=== PATIENT | female | born 2000 | race Caucasian/White ===

== ENCOUNTER → 2020-06-25 08:06 | Outpatient (BNVA) | payer BC, SELFPAY | PROVIDERS: Family Provider Family Medicine; Visit Provider Obstetrics & Gynecology | DX: Z12.4 Encounter for screening for malignant neoplasm of cervix (principal); Z20.2 Contact with and (suspected) exposure to infections with a predominantly sexual mode of transmission | CPT/HCPCS: 87491; 87591; 87661; 88175 ==

== ENCOUNTER → 2021-02-12 14:05 | Outpatient (BNVA) | payer BC, SELFPAY | PROVIDERS: Family Provider Family Medicine; PCP Internal Medicine; Visit Provider Nurse Practitioner Women's Health | DX: A59.9 Trichomoniasis, unspecified (principal); N90.89 Other specified noninflammatory disorders of vulva and perineum; Z30.9 Encounter for contraceptive management, unspecified; B37.9 Candidiasis, unspecified | CPT/HCPCS: 87491; 87530; 87591; 87661 ==

== ENCOUNTER → 2021-02-25 13:15 | Outpatient (BNVA) | payer BC, SELFPAY | PROVIDERS: Family Provider Family Medicine; PCP Internal Medicine; Visit Provider Nurse Practitioner Women's Health | DX: Z30.014 Encounter for initial prescription of intrauterine contraceptive device (principal) | CPT/HCPCS: 81025 ==

== ENCOUNTER 2022-04-23 08:40 | Outpatient (CLI) | payer BC, SELFPAY | END 2022-04-23 08:41 | disposition home or self-care (01) | PROVIDERS: Family Provider Family Medicine; PCP Internal Medicine; Visit Provider Nurse Practitioner Women's Health | DX: Z32.00 Encounter for pregnancy test, result unknown (principal) | CPT/HCPCS: 84702 ==

== ENCOUNTER → 2022-06-02 12:15 | Outpatient (BNVA) | payer BC, SELFPAY | PROVIDERS: Family Provider Family Medicine; PCP Internal Medicine; Visit Provider Nurse Practitioner Women's Health | DX: Z01.419 Encounter for gynecological examination (general) (routine) without abnormal findings (principal); Z11.3 Encounter for screening for infections with a predominantly sexual mode of transmission | CPT/HCPCS: 86592; 86803; 87340; 87491; 87591; 87661; 87806; 88175 ==

== ENCOUNTER 2022-08-04 03:35 | Emergency (ER) | payer BC, SELFPAY ==
[2022-08-04 04:06] VITALS: BMI 36.9
[2022-08-04 04:08] VITALS: BP 202/109; PULSE 115; RESP 16; TEMP 37.2; O2SAT 98
--- NOTE | 2022-08-04 04:15 | XRR_ITS ---
PROCEDURE INFORMATION: Exam: XR Lumbosacral Spine Exam date and time: 08/04/2022 4:20 AM Age: 22 years old Clinical indication: Patient HX: Sharp low back pain that has been worsening over the last month. TECHNIQUE: Imaging protocol: Radiologic exam of the lumbosacral spine. Views: 2 or 3 views. COMPARISON: No relevant prior studies available. FINDINGS: Bones/joints: Normal. No acute fracture. Normal alignment. Soft tissues: Unremarkable. Organs: IUD projects over the mid pelvis. XR/XR lumbar spine 2-3V* [id number] IMPRESSION: No acute findings.
--- NOTE | 2022-08-04 04:17 | ED_ITS ---
HPI - Back Pain/Injury General: Chief Complaint: Back Pain/Injury Stated Complaint: back pain Time Seen by Provider: 08/04/22 04:12 Source: patient Mode of arrival: ambulatory Limitations: no limitations History of Present Illness: 22-year-old female who states she has had issues with lower back pain over the last month states she been seeing a chiropractor states that yesterday she had to grab and try to open her car door and pulled so felt a very sharp pain in her low back where she has had this chronic pain states pain has been severe today and 9 out of 10 she denies any bowel or bladder incontinence denies any difficulty walking. Denies any fevers. Associated symptoms: Deny abdominal pain, chills, dysuria, fever(s), nausea or vomiting Review of Systems Const: Denies: fever(s) or chills ENMT: Denies: throat pain or dental pain Card: Denies: chest pain Resp: Denies: dyspnea GI: Denies: abdominal pain, nausea, vomiting or diarrhea : Denies: dysuria Musc: Reports: back pain; Denies: neck pain Skin/Breast: Denies: rash Neuro: Denies: headache(s) PFSH ED PFSH: Medical History Anxiety and depression Medical marijuana use No pertinent past medical history negdhx:htn,dm,thyroid,dvt/pe PCP: None Surgical History H/O arthroscopic knee surgery right Family History Grandmother Diabetes Maternal Grandfather Heart disease Maternal Denies family history of Colon cancer Ovarian cancer Clotting disorder Hyperlipidemia Breast cancer Anesthesia complication Bleeding disorder Hypertension Uterine cancer Thyroid condition Stroke Social History Substance/Drug Use: current Substance/Drug use frequency: daily Other substance/drug use details: has a medical card Physical Exam Const: COMMON NORMALS: no acute distress, patient oriented x3 and healthy appearing HENMT: COMMON NORMALS: normocephalic and atraumatic HEAD & SCALP: normocephalic and atraumatic Eye: COMMON NORMALS: conjunctivae normal CONJUNCTIVA: Yes conjunctivae no rmal Neck/C-Spine: COMMON NORMALS: full ROM and supple Chest: COMMONS NORMALS: normal inspection of the chest and normal palpation of entire chest wall Resp: COMMON NORMALS: normal respiratory effort, No retractions, No use of accessory muscles and clear to auscultation bilaterally AUSCULTATION: clear to auscultation bilaterally Cardio: COMMON NORMALS: regular rate, regular rhythm and No murmurs present (Cardio) RATE: regular rate RHYTHM: regular rhythm GI: COMMON NORMALS: Normal to inspection, nondistended, normoactive bowel sounds present, Soft to palpation, non-tender and no masses PALPATION: Yes Soft to palpation Back/Pelvis: OTHER: Right lower lumbar tenderness no midline tenderness no saddle anesthesia Extremity: COMMON NORMALS: normal to inspection and full ROM Neuro: COMMON NORMALS: patient oriented x3, moves all extremities and no focal motor deficits Psych: COMMON NORMALS: mental status grossly normal, Normal thought process present and cooperative THOUGHT PROCESS: Normal thought process present Skin: COMMON NORMALS: no rashes or lesions noted and no wounds GENERAL SKIN EXAM: no rashes or lesions noted Course Vital Signs: Vital signs: Vital Signs Temperature 98.9 F 08/04/22 04:08 Pulse Rate 95 08/04/22 04:49 Respiratory Rate 20 H 08/04/22 04:49 Blood Pressure 126/102 08/04/22 04:49 Pulse Oximetry 97 08/04/22 04:49 Oxygen Delivery Me thod Room Air 08/04/22 04:49 MDM - Back Pain/Injury Medical Decision Making Patient presents for low back pain its been chronic in nature with the acute worsening she has no signs of cord compression she is ambulatory she is pain- free now after pain meds she had no saddle anesthesia. We will place her on pain meds along with steroids and muscle relaxants for home we will get her follow-up with Dr. Gayle she is return if worsening. Medical Records I reviewed the patient's medical records. Labs I reviewed the patient's lab results. 08/04/22 04:45 08/04/22 04:45 Laboratory Results WBC 10.3 10^3/uL (4.0-10.0) H 08/04/22 04:45 RBC 5.07 10^6/uL (4.1-5.3) 08/04/22 04:45 Hgb 13.7 g/dL (11.5-15.3) 08/04/22 04:45 Hct 43.4 % (37.0-47.0) 08/04/22 04:45 MCV 85.6 fl (81-99) 08/04/22 04:45 MCH 27.0 pg (28.0-34.0) L 08/04/22 04:45 MCHC 31.6 g/dL (30.0-36.0) 08/04/22 04:45 RDW 13.8 % (12.1-15.1) 08/04/22 04:45 Plt Count 330 10^3/cmm (130-400) 08/04/22 04:45 MPV 10.3 fL (7.4-10.4) 08/04/22 04:45 Neut % (Auto) 67.1 % 08/04/22 04:45 Lymph % (Auto) 24.1 % 08/04/22 04:45 [place] % (Auto) 6.3 % 08/04/22 04:45 Eos % (Auto) 1.3 % 08/04/22 04:45 Baso % (Auto) 0.6 % 08/04/22 04:45 Neut # (Auto) 6.90 10^3/uL (1.8-7.7) 08/04/22 04:45 Lymph # (Auto) 2.5 10^3/uL (0.8-4.8) 08/04/22 04:45 [place] # (Auto) 0.7 10^3/uL (0.2-0.9) 08/04/22 04:45 Eos # (Auto) 0.1 10^3/uL (0.0-0.8) 08/04/22 04:45 Baso # (Auto) 0.1 10^3/uL (0.0-0.1) 08/04/22 04:45 Nucleated RBC % (auto) 0 % 08/04/22 04:45 Nucleated RBCs # 0.0 /100WBC 08/04/22 04:45 Sodium 136 mmol/L (136-145) 08/04/22 04:45 Potassium 3.8 mmol/L (3.5-5.1) 08/04/22 04:45 Chloride 100 mmol/L (98-107) 08/04/22 04:45 Carbon Dioxide 23 mmol/L (22-29) 08/04/22 04:45 Anion Gap 16.8 (5-19) 08/04/22 04:45 BUN 11 mg/dL (6-20) 08/04/22 04:45 Creatinine 0.5 mg/dL (0.5-0.9) 08/04/22 04:45 GFR Calculation 151.6 mL/min (90-130) H 08/04/22 04:45 Glucose 110 mg/dL (65-115) 08/04/22 04:45 Calculated Osmolality 282 mOsm/kg (285-295) L 08/04/22 04:45 Calcium 9.6 mg/dL (8.5-10.5) 08/04/22 04:45 Total Bilirubin 0.5 mg/dL (0.15-1.2) 08/04/22 04:45 AST 58 U/L (0-32) H 08/04/22 04:45 ALT 83 U/L (0-33) H 08/04/22 04:45 Alkaline Phosphatase 139 U/L (35-105) H 08/04/22 04:45 Total Protein 8.3 g/dL (6.6-8.7) 08/04/22 04:45 Albumin 4.2 g/dL (3.5-5.2) 08/04/22 04:45 Globulin 4.1 g/dL (1.3-4.6) 08/04/22 04:45 Discharge Plan Discharge Patient Disposition: Home Clinical Impression: Low back pain Condition: Stable Prescriptions: New hydrocodone-acetaminophen 5-325 mg tablet 1 tab PO Q6H PRN (Reason: pain) Qty: 14 0RF methocarbamol 750 mg tablet 750 mg PO Q6H PRN (Reason: spasms) Qty: 20 0RF prednisone 50 mg tablet 50 mg PO DAILY Qty: 5 0RF No Action Kyleena 17.5 mcg/24 hrs (5 yrs) 19.5 mg intrauterine device intrauterine nystatin-triamcinolone 100,000-0.1 unit/gram-% ointment 1 applic topical BID PRN (Reason: vulvitis) Qty: 30 0RF Rx Instructions: start with bid x 7 days; then reassess Discharge Orders: Discharge ED (Routine); Ordered 08/04/22 Ordered By: Brittaney Rossi Referrals: Krishna Gayle DO [Physician] - 1-3 days Albino Steven MD [Primary Care Provider] - Discharge Diet: Advance as tolerated Discharge Activity: Resume usual activity Patient Instructions: Back Pain (ED), Opioid Safety Coding Level of Care Code ED [employer] for [employer]
[2022-08-04 04:36] VITALS: RESP 18
[2022-08-04] MEDS: dexamethasone 10 mg/mL INJ IVP (04:36)
[2022-08-04] MEDS: HYDROmorphone 1 mg/mL INJ 1 mL IVP (04:36)
[2022-08-04 04:49] VITALS: BP 126/102; PULSE 95; RESP 20; O2SAT 97
[2022-08-04 04:51] LABS: Basophils # 0.1 10^3/uL (0.0-0.1); Basophils % 0.6 %; Eosinophils # 0.1 10^3/uL (0.0-0.8); Eosinophils % 1.3 %; Hematocrit 43.4 % (37.0-47.0); Hemoglobin 13.7 g/dL (11.5-15.3); Lymphocytes # 2.5 10^3/uL (0.8-4.8); Lymphocytes % 24.1 %; Mean Corpuscular HGB Conc 31.6 g/dL (30.0-36.0); Mean Corpuscular Volume 85.6 fl (81-99); Mean Platelet Volume 10.3 fL (7.4-10.4); Monocytes # 0.7 10^3/uL (0.2-0.9); Monocytes % 6.3 %; Neutrophils % 67.1 %; Nucleated Red Blood Cells % 0 %; Platelet Count 330 10^3/cmm (130-400); Red Blood Count 5.07 10^6/uL (4.1-5.3); Red Cell Distribution Width 13.8 % (12.1-15.1); White Blood Count 10.3 10^3/uL (4.0-10.0)
[2022-08-04 05:12] LABS: Alanine Aminotransferase 83 U/L (0-33); Albumin Level 4.2 g/dL (3.5-5.2); Alkaline Phosphatase 139 U/L (35-105); Anion Gap 16.8 (5-19); Aspartate Amino Transferase 58 U/L (0-32); Blood Urea Nitrogen 11 mg/dL (6-20); Calcium 9.6 mg/dL (8.5-10.5); Carbon Dioxide 23 mmol/L (22-29); Chloride 100 mmol/L (98-107); Globulin 4.1 g/dL (1.3-4.6); Glomerular Filtration Rate 151.6 mL/min (90-130); Glucose 110 mg/dL (65-115); Osmolality Calculated 282 mOsm/kg (285-295); Potassium 3.8 mmol/L (3.5-5.1); Sodium 136 mmol/L (136-145); Total Bilirubin 0.5 mg/dL (0.15-1.2); Total Protein 8.3 g/dL (6.6-8.7)
[2022-08-04] MEDS: hyDRALAzine 20 mg/mL INJ 1 mL 10 MG IVP (05:12)
[2022-08-04] MEDS: ondansetron 2 mg/ML SDV 2 mL 4 MG IVP (05:13)
[2022-08-04 05:39] VITALS: BP 151/113; PULSE 108; RESP 20; O2SAT 98
--- NOTE | 2022-08-04 07:52 | PC.NURSE ---
Addendum entered by Rhoda De Oliveira 08/12/22 11:18: Patient had a follow up appointment scheduled with ortho - patient did not attend appointment Addendum entered by Mag Rivers RN 08/05/22 10:36: patient scheduled for 08/11 at 8am w/ emily renae - pt is aware Original Note: Patient was seen in the ED on 08/04/[address] Gayle for back pain. TCM sent message to call pt with an appt.
== END 2022-08-04 05:44 | disposition home or self-care (01) ==
PROVIDERS: Emergency Provider Emergency Medicine; PCP Internal Medicine
DX: M54.50 Low back pain, unspecified (principal)
CPT/HCPCS: 72100; 80053; 85025; 96374; 96375; 99284; J0360; J1100; J1170; J2405

== ENCOUNTER → 2022-10-23 10:46 | Outpatient (BNVA) | payer BC, SELFPAY | PROVIDERS: PCP Family Medicine; Visit Provider Family Medicine | DX: Z00.00 Encounter for general adult medical examination without abnormal findings (principal) | CPT/HCPCS: 80061; 83036 ==

== ENCOUNTER → 2023-06-14 16:14 | Outpatient (BNVA) | payer BC, SELFPAY | PROVIDERS: PCP Family Medicine; Visit Provider Family Medicine | DX: Z11.3 Encounter for screening for infections with a predominantly sexual mode of transmission (principal) | CPT/HCPCS: 87491; 87591; 87806 ==

== ENCOUNTER → 2024-06-19 16:00 | Outpatient (BNVA) | payer BC, SELFPAY | PROVIDERS: PCP Family Medicine; Visit Provider Family Medicine | DX: F41.9 Anxiety disorder, unspecified (principal); F32.A Depression, unspecified; E66.01 Morbid (severe) obesity due to excess calories; Z68.42 Body mass index [BMI] 45.0-49.9, adult; R74.01 Elevation of levels of liver transaminase levels | CPT/HCPCS: 83036; 85025 ==

== ENCOUNTER → 2024-06-22 13:25 | Outpatient (BNVA) | payer BC, SELFPAY | PROVIDERS: PCP Family Medicine; Visit Provider Family Medicine | DX: F41.9 Anxiety disorder, unspecified (principal); F32.A Depression, unspecified; E66.01 Morbid (severe) obesity due to excess calories; Z68.42 Body mass index [BMI] 45.0-49.9, adult; R74.01 Elevation of levels of liver transaminase levels | CPT/HCPCS: 80053; 80061; 82306; 82607; 84443 ==

== ENCOUNTER 2024-07-28 07:04 | Outpatient (CLI) | payer BC, SELFPAY ==
--- NOTE | 2024-07-28 07:45 | US_ITS ---
WS: [id number] RIGHT UPPER QUADRANT ULTRASOUND HISTORY: transaminitis COMPARISON: None available. Liver: 23.6 cm in length. Markedly enlarged liver. Portal triads are not visualized. Deep liver is not identified. Diaphragmatic surface cannot be identified. Severe hepatic steatosis. No intrahepatic duct dilatation is identified. Portal Vein: Normal hepatopetal flow with monophasic waveform. Gallbladder: Unremarkable. Limited but no stones identified. CBD: 0.6 cm Pancreas: Not visualized. Right kidney: 12.0 cm in length. Normal size and echogenicity. No hydronephrosis or mass. Aorta and IVC: Limited. No ascites. US/US liver [id number] IMPRESSION: 1. Technically very limited and difficult RIGHT upper quadrant ultrasound due to body habitus. 2. Marked hepatomegaly and hepatic steatosis. 3. Gallbladder appears negative but limited. 4. Common bile duct is normal size.
== END 2024-07-28 07:05 | disposition home or self-care (01) ==
PROVIDERS: PCP Family Medicine; Visit Provider Family Medicine
DX: R16.0 Hepatomegaly, not elsewhere classified (principal); K76.0 Fatty (change of) liver, not elsewhere classified
CPT/HCPCS: 76705